=== PATIENT | male | born 1980 | race Caucasian/White ===

== ENCOUNTER 2022-10-16 21:25 | Emergency (ER) | payer SELFPAY ==
[~2022-10-16] VITALS: Ht 160 cm; Wt 63.5 kg
[2022-10-16 21:34] VITALS: BP_SYST 140
[2022-10-16] MEDS ORDERED: LIDOCAINE 1% 10 MG/ML, 20 ML MDV INJ ONE (22:45)
[2022-10-16] MEDS ORDERED: IBUP-1969 PO (22:58)
[2022-10-16] MEDS ORDERED: SULF1TAB48 PO (22:58)
[2022-10-16 23:15] VITALS: BP_SYST 135
== END 2022-10-16 23:15 | disposition home or self-care (01) ==
LOC: SED 21:25
DX: L02.416 Cutaneous abscess of left lower limb (principal); L03.116 Cellulitis of left lower limb; Z79.899 Other long term (current) drug therapy
CPT/HCPCS: 99284